=== PATIENT | female | born 1990 | race African-American/Black ===

== ENCOUNTER 2017-11-28 20:33 | Emergency (ER) | payer SELFPAY | END 2017-11-28 21:45 | disposition home or self-care (01) | LOC: ER 20:33 | DX: S02.5XXA Fracture of tooth (traumatic), initial encounter for closed fracture (principal); T50.905A Adverse effect of unspecified drugs, medicaments and biological substances, initial encounter; K04.7 Periapical abscess without sinus; K02.9 Dental caries, unspecified; X58.XXXA Exposure to other specified factors, initial encounter; Y93.89 Activity, other specified; Y92.89 Other specified places as the place of occurrence of the external cause; Y99.8 Other external cause status | CPT/HCPCS: 99283 ==

== ENCOUNTER 2018-09-14 18:25 | Emergency (ER) | payer MEDICAID, SELFPAY ==
[~2018-09-14] VITALS: Ht 149.9 cm; Wt 81.6 kg
[~2018-09-14 18:25] MED LIST: CLIN150C14 PO; NAPR-514 PO
[2018-09-14] MEDS ORDERED: hydrALAZINE 20 MG/ML VIAL. IVP ONE (19:30)
[2018-09-14 19:59] LABS: BASO # 0.1 x10^3/uL (0.0-0.2); BASO % 1 % (0-3); EOS # 0.5 x10^3/uL (0.0-0.7); EOS % 9 % (0-3); HEMATOCRIT 38.5 % (36.0-47.0); HEMOGLOBIN 12.8 g/dL (12.0-15.5); LYMPH # 2.3 x10^3/uL (1.0-4.8); LYMPH % 41 % (24-48); MEAN CORPUSCULAR HEMOGLOBIN 30 pg (25-35); MEAN CORPUSCULAR HGB CONC 33 g/dL (31-37); MEAN CORPUSCULAR VOLUME 91 fL (79-100); MONO # 0.6 x10^3/uL (0.0-1.1); MONO % 11 % (0-9); NEUT # 2.1 x10^3uL (1.8-7.7); NEUT % 39 % (31-73); PLATELET COUNT 334 x10^3/uL (140-400); RED BLOOD COUNT 4.23 x10^6/uL (3.50-5.40); RED CELL DISTRIBUTION WIDTH 15.1 % (11.5-14.5); WHITE BLOOD COUNT 5.5 x10^3/uL (4.0-11.0)
[2018-09-14 20:06] VITALS: BP 144/72
[2018-09-14 21:02] LABS: CREATININE 1.1 mg/dL (0.6-1.0); GFR 71.6; POTASSIUM 3.9 mmol/L (3.5-5.1)
[2018-09-14 21:08] LABS: ALBUMIN 3.5 g/dL (3.4-5.0); ALBUMIN/GLOBULIN RATIO 0.9 (1.0-1.7); TOTAL BILIRUBIN 0.2 mg/dL (0.2-1.0); TOTAL PROTEIN 7.5 g/dL (6.4-8.2)
--- NOTE | 2018-09-14 21:16 | PHYS DOC ---
Past Medical History Past Medical History: No Pertinent History Additional Past Medical Histor: chlamydia (KEATON LORA) Past Surgical History: Other Additional Past Surgical Histo: ABORTIONS X 2 (KEATON LORA) Alcohol Use: None Drug Use: None (KEATON LORA) Adult General Chief Complaint Chief Complaint: DIZZY/LIGHT HEADED HPI HPI Patient is a 28 year old F who comes in to ER feeling dizzy and short of breath about 2 hours prior to arrival. On arrival she states she is starting to feel a little better. Pt states she was at her friends house and took her blood pressure and found it was elevated so she took her friends blood pressure medicine. She is not sure what the medicine was but thinks it started with a B. Pt is actually hypertensive still on arrival. She denies chest pain and states her shortness of breath has resolved. (KEATON LORA) Review of Systems Review of Systems Constitutional: Denies fever or chills [] Respiratory: Denies cough. Reports shortness of breath. Cardiovascular: Denies chest pain. GI: Denies abdominal pain, nausea, vomiting, bloody stools or diarrhea [] : Denies dysuria or hematuria [] Musculoskeletal: Denies back pain or joint pain [] Integument: Denies rash or skin lesions [] Neurologic: Denies headache, focal weakness or sensory changes [] All other systems were reviewed and found to be within normal limits, except as documented in this note. (KEATON LORA) Current Medications Current Medications Current Medications Medications (Trade) Dose Ordered Sig/Alley Start Time Stop Time Status Last Admin Dose Admin Hydralazine HCl (Apresoline Inj) 5 mg 1X ONCE 09/14/18 19:30 09/14/18 19:31 DC (KATHERINE CARTER DO) Allergies Allergies Allergies Coded Allergies Type Severity Reaction Last Updated Verified No Known Drug Allergies 07/03/13 No (KATHERINE CARTER DO) Physical Exam Physical Exam Constitutional: Well developed, well nourished, no acute distress, non-toxic appearance. [] Neck: Normal range of motion, no tenderness, supple, no stridor. [] Cardiovascular:Heart rate regular rhythm, no murmur [] Lungs & Thorax: Bilateral breath sounds clear to auscultation [] Abdomen: Bowel sounds normal, soft, no tenderness, no masses, no pulsatile masses. [] Skin: Warm, dry, no erythema, no rash. [] Back: No tenderness, no CVA tenderness. [] Extremities: No tenderness, no cyanosis, no clubbing, ROM intact, no edema. [] Neurologic: Alert and oriented X 3, normal motor function, normal sensory function, no focal deficits noted. [] Psychologic: Affect normal, judgement normal, mood normal. [] (KEATON LORA) Current Patient Data Vital Signs Vital Signs Date Time Temp Pulse Resp B/P (MAP) Pulse Ox O2 Delivery O2 Flow Rate FiO2 09/14/18 20:06 82 99 09/14/18 19:37 134/76 09/14/18 18:42 97.9 16 Room Air 97.9 (CARTER,KATHERINE R DO) Lab Values Laboratory Tests Test 09/14/18 18:55 09/14/18 19:53 09/14/18 20:45 POC Urine HCG, Qualitative Hcg negative (Negative) White Blood Count 5.5 x10^3/uL (4.0-11.0) Red Blood Count 4.23 x10^6/uL (3.50-5.40) Hemoglobin 12.8 g/dL (12.0-15.5) Hematocrit 38.5 % (36.0-47.0) Mean Corpuscular Volume 91 fL (79-100) Mean Corpuscular Hemoglobin 30 pg (25-35) Mean Corpuscular Hemoglobin Concent 33 g/dL (31-37) Red Cell Distribution Width 15.1 % (11.5-14.5) H Platelet Count 334 x10^3/uL (140-400) Neutrophils (%) (Auto) 39 % (31-73) Lymphocytes (%) (Auto) 41 % (24-48) Monocytes (%) (Auto) 11 % (0-9) H Eosinophils (%) (Auto) 9 % (0-3) H Basophils (%) (Auto) 1 % (0-3) Neutrophils # (Auto) 2.1 x10^3uL (1.8-7.7) Lymphocytes # (Auto) 2.3 x10^3/uL (1.0-4.8) Monocytes # (Auto) 0.6 x10^3/uL (0.0-1.1) Eosinophils # (Auto) 0.5 x10^3/uL (0.0-0.7) Basophils # (Auto) 0.1 x10^3/uL (0.0-0.2) Maternal Serum HCG Beta Subunit < 1 mIU/mL (0-5) Sodium Level 141 mmol/L (136-145) Potassium Level 3.9 mmol/L (3.5-5.1) Chloride Level 105 mmol/L (98-107) Carbon Dioxide Level 29 mmol/L (21-32) Anion Gap 7 (6-14) Blood Urea Nitrogen 10 mg/dL (7-20) Creatinine 1.1 mg/dL (0.6-1.0) H Estimated GFR (Cockcroft-Gault) 71.6 BUN/Creatinine Ratio 9 (6-20) Glucose Level 83 mg/dL (70-99) Calcium Level 9.0 mg/dL (8.5-10.1) Total Bilirubin 0.2 mg/dL (0.2-1.0) Aspartate Amino Transferase (AST) 20 U/L (15-37) Alanine Aminotransferase (ALT) 35 U/L (14-59) Alkaline Phosphatase 55 U/L (46-116) Total Protein 7.5 g/dL (6.4-8.2) Albumin 3.5 g/dL (3.4-5.0) Albumin/Globulin Ratio 0.9 (1.0-1.7) L Laboratory Tests 09/14/18 19:53 Laboratory Tests 09/14/18 20:45 (KATHERINE CARTER DO) EKG EKG [] (KEATON LORA) Radiology/Procedures Radiology/Procedures [] (KEATON LORA) Course & Med Decision Making Course & Med Decision Making Pertinent Labs and Imaging studies reviewed. (See chart for details) Blood pressure came down without any medications. She is feeling back to baseline. Discussed in length that she should avoid taking other peoples medications and again discussed the dangers of doing this. Pt voices understanding. Pt asked to follow up with her PCP to have BP rechecked and discuss today's visit. She is ambulatory out of ER in no distress. (KEATON LORA) Dragon Disclaimer Dragon Disclaimer This electronic medical record was generated, in whole or in part, using a voice recognition dictation system. (KEATON LORA) Departure Departure Impression: Primary Impression: Dizzy Disposition: 01 HOME, SELF-CARE Condition: IMPROVED Referrals: NO PCP (PCP) DUTCH SHELLEY MD Patient Instructions: Dizziness, [id number] Additional Instructions: Your blood pressure was high on arrival but then before medicine could be given, it was down to a normal level. Stress can cause problems with high blood pressure. We recommend following up with a primary care doctor for further evaluation of your blood pressure. Please do not take other people's blood pressure medications. If you were not prescribed that medicine, you don't know what the medicine might do to you including dropping your pressure too low, making your heart rate too slow, etc. It can be very dangerous. Return to ER if symptoms worsen at anytime. Attending Signature Attending Signature I have reviewed the PA/SUPERVISOR BENZENE REFINING's note and plan of care. I was available for consultation as needed during the patient's visit in the emergency department. I agree with the clinical impression, plan, and disposition. (KATHERINE CARTER DO) KEATON LORA September 14, 2018 21:16 KATHERINE CARTER DO September 16, 2018 08:33
== END 2018-09-14 21:43 | disposition home or self-care (01) ==
LOC: ER 18:25
DX: R42 Dizziness and giddiness (principal); R06.02 Shortness of breath
CPT/HCPCS: 36415; 80053; 81025; 84702; 85025; 99284

== ENCOUNTER 2018-09-30 06:41 | Emergency (ER) | payer MEDICAID ==
[~2018-09-30] VITALS: Ht 149.9 cm; Wt 83.5 kg
[2018-09-30] MEDS ORDERED: MORPHINE SULFATE 10 MG/ML VIAL. IM ONE (07:15)
[2018-09-30] MEDS ORDERED: ONDANSETRON ODT 4 MG TAB.RAPDIS. PO ONE (07:15)
[2018-09-30] MEDS ORDERED: FAMOTIDINE 20 MG TABLET. PO ONE (07:15)
--- NOTE | 2018-09-30 07:29 | PHYS DOC ---
Past Medical History Past Medical History: No Pertinent History Additional Past Medical Histor: chlamydia Past Surgical History: Other Additional Past Surgical Histo: ABORTIONS X 2 Alcohol Use: None Drug Use: None Adult General Chief Complaint Chief Complaint: DENTAL PROBLEM HPI HPI Patient is a 28 year old -[place] female who presents with post extraction maxillary facial pain. Patient had 3 teeth extracted 3 days local dental clinic and was prescribed Tylenol 3. Patient's been taking Aleve at home in addition to Tylenol threes which she states has not controlled the pain. Patient states guarding the pain is localized over the socket of the upper incisor extracted on the right.[] Review of Systems Review of Systems ROS as per HPI All other systems were reviewed and found to be within normal limits, except as documented in this note. Current Medications Current Medications Current Medications Medications (Trade) Dose Ordered Sig/Alley Start Time Stop Time Status Last Admin Dose Admin Famotidine (Pepcid) 20 mg 1X ONCE 09/30/18 07:15 09/30/18 07:16 DC 09/30/18 07:47 20 MG Morphine Sulfate (Morphine Sulfate) 10 mg 1X ONCE 09/30/18 07:15 09/30/18 07:16 DC 09/30/18 07:46 10 MG Ondansetron HCl (Zofran Odt) 4 mg 1X ONCE 09/30/18 07:15 09/30/18 07:16 DC 09/30/18 07:47 4 MG Allergies Allergies Allergies Coded Allergies Type Severity Reaction Last Updated Verified No Known Drug Allergies 07/03/13 No Physical Exam Physical Exam Constitutional: Well developed, well nourished, moderate distress secondary to pain. [] HENT: Normocephalic, atraumatic, bilateral external ears normal, oropharynx moist, empty upper incisor socket, no clot present, no active bleeding[] Eyes: PERRLA, EOMI. [] Neck: Normal range of motion. [] Cardiovascular:Heart rate regular rhythm, no murmur [] Lungs & Thorax: Bilateral breath sounds clear to auscultation [] Psychologic: Affect normal, judgement normal, mood normal. [] Current Patient Data Vital Signs Vital Signs Date Time Temp Pulse Resp B/P (MAP) Pulse Ox O2 Delivery O2 Flow Rate FiO2 09/30/18 08:14 169/103 (125) 09/30/18 07:46 16 99 Room Air 09/30/18 06:44 98.2 94 98.2 EKG EKG [] Radiology/Procedures Radiology/Procedures [] Course & Med Decision Making Course & Med Decision Making Pertinent Labs and Imaging studies reviewed. (See chart for details) [] Dragon Disclaimer Dragon Disclaimer This electronic medical record was generated, in whole or in part, using a voice recognition dictation system. Departure Departure Impression: Primary Impression: Dry tooth socket Disposition: HOME, SELF-CARE Condition: GOOD Referrals: NO PCP (PCP) Patient Instructions: Dental Dry Socket, Dnef-eq-Iaor Scripts Hydrocodone/Apap 10-325 (NORCO 10-325 TABLET) 1 Each Tablet 1 TAB PO Q8HRS PRN for PAIN MDD 6, #10 TAB 0 Refills Prov: ROGERIO HARRIS DO 09/30/18 Penicillin V Potassium (PENICILLIN V POTASSIUM) 500 Mg Tablet 500 MG PO QID for 10 Days, #40 TAB 0 Refills Prov: ROGERIO HARRIS DO 09/30/18 ROGERIO HARRIS DO September 30, 2018 07:29
[2018-09-30] MEDS ORDERED: PENI500T PO (07:35)
[2018-09-30] MEDS ORDERED: HYDR-3135 PO (07:35)
[2018-09-30 08:14] VITALS: BP 169/103
== END 2018-09-30 08:17 | disposition home or self-care (01) ==
LOC: ER 06:41
DX: M27.3 Alveolitis of jaws (principal)
CPT/HCPCS: 96372; 99283; J2270; Q0162

== ENCOUNTER 2019-11-07 05:12 | Emergency (ER) | payer MEDICAID ==
[~2019-11-07] VITALS: Ht 149.9 cm; Wt 100.0 kg
[~2019-11-07 05:12] MED LIST changes: +HYDR-3135 PO; +PENI500T PO
--- NOTE | 2019-11-07 05:55 | PHYS DOC ---
Past Medical History Past Medical History: Hypertension Additional Past Medical Histor: chlamydia (BRISEYDA STALLINGS DO) Past Surgical History: Other Additional Past Surgical Histo: ABORTIONS X 2 (BRISEYDA STALLINGS DO) Smoking Status: Never Smoker Alcohol Use: None Drug Use: None (BRISEYDA STALLINGS DO) General Adult EDM: Chief Complaint: Palpitations HPI: HPI: Patient is a 29 year old female with a medical history of hypertension hyperlipidemia currently on control presents for the evaluation of palpitations. Patient states she woke up from bed around 230am and everything in her visual field was "red". She states at that time she felt "jittery". When getting up out of bed she felt her heart racing and felt short of breath. Visual change, Palpitations, and shortness of breath have resolved. Patient just starte bcp 2 weeks ago. No history of DVT or PE. (BRISEYDA STALLINGS DO) Review of Systems: Review of Systems: Constitutional: Denies fever or chills. [] Eyes: positive visual acuity. [] HENT: Denies nasal congestion or sore throat. [] Respiratory: positive shortness of breath. [] Cardiovascular: positive palpitations GI: Denies abdominal pain, nausea, vomiting, bloody stools or diarrhea. [] : Denies dysuria. [] Musculoskeletal: Denies back pain or joint pain. [] Integument: Denies rash. [] Neurologic: Denies headache, focal weakness or sensory changes. [] Endocrine: Denies polyuria or polydipsia. [] Lymphatic: Denies swollen glands. [] Psychiatric: Denies depression or anxiety. [] (BRISEYDA STALLINGS DO) Heart Score: Risk Factors: Risk Factors: DM, Current or recent (<one month) smoker, HTN, HLP, family history of CAD, obesity. Risk Scores: Score 0 - 3: 2.5% MACE over next 6 weeks - Discharge Home Score 4 - 6: 20.3% MACE over next 6 weeks - Admit for Clinical Observation Score 7 - 10: 72.7% MACE over next 6 weeks - Early Invasive Strategies (BRISEYDA STALLINGS DO) HEART Score for Chest Pain: HEART Score for Chest Pain Response (Comments) Value History Slighlty/Non-Suspicious 0 ECG Normal 0 Age < 45 0 Risk Factors No Risk Factors 0 Troponin < Normal Limit 0 Total 0 Allergies: Allergies: Allergies Coded Allergies Type Severity Reaction Last Updated Verified No Known Drug Allergies 07/03/13 No (BRISEYDA STALLINGS DO) Physical Exam: PE: Constitutional: Well developed, well nourished, no acute distress, non-toxic appearance. [] HENT: Normocephalic, atraumatic, bilateral external ears normal, oropharynx moist, no oral exudates, nose normal. [] Eyes: EOMI, conjunctiva normal, no discharge. [] Neck: Normal range of motion, no tenderness, supple, no stridor. [] Cardiovascular:Heart rate regular rhythm, Lungs & Thorax: Bilateral breath sounds clear to auscultation [] Abdomen: Bowel sounds normal, soft, no tenderness, no masses, no pulsatile masses. [] Skin: Warm, dry, no erythema, no rash. [] Back: No tenderness, no CVA tenderness. [] Extremities: No tenderness, ROM intact, Neurologic: Alert and oriented X 3, normal motor function, normal sensory function, no focal deficits noted. [] Psychologic: Affect normal, judgement normal, mood normal. [] (BRISEYDA STALLINGS DO) PE: CONSTITUTIONAL: Nontoxic, in no distress, alert and oriented, hemodynamically stable HEAD: normocephalic, atraumatic, NECK: No midline tenderness, no nuchal rigidity or meningismus, no JVD or tracheal deviation EENT: External ocular movements intact, no trismus or drooling, no voice changes, moist mucous membranes CARD: Regular rate, S1, S2, no murmurs ABDOMEN: Soft, nontender, no distention, no rebound tenderness or guarding RESPIRATORY lungs clear to auscultation bilaterally, no wheezing, rales or crackles, no stridor or tripoding, unlabored respiratory effort MUSCULOSKELETAL: Full range of motion's in all extremities, no deformities or tenderness to palpation VASCULAR: Equal upper and lower extremity pulses SKIN: Warm, no rash lesions or cyanosis NEURO: Sensory motor intact, PSYCH: Appropriate mood and affect (KIP ROSADO DO) Current Patient Data: Labs: Laboratory Tests Test 11/07/19 05:36 POC Urine HCG, Qualitative Hcg negative (Negative) Vital Signs: Vital Signs Date Time Temp Pulse Resp B/P (MAP) Pulse Ox O2 Delivery O2 Flow Rate FiO2 11/07/19 05:28 98.4 85 16 172/116 (134) 9 Room Air 98.4 (HAYLIEBRISEYDA DO) EKG: EKG: [] (BRISEYDA STALLINGS DO) Radiology/Procedures: Radiology/Procedures: [] (BRISEYDA STALLINGS DO) Radiology/Procedures: IMAGING REPORT Signed PATIENT: NIKA SHAW: [id number] : 1990 LOCATION: ER AGE: 29 SEX: F EXAM STATUS: REG ER ORD. PHYSICIAN: BRISEYDA STALLINGS DO REASON: shortness of breath palpitation PROCEDURE: CHEST AP ONLY AP chest. HISTORY: Short of breath AP view was taken of the chest. Lungs are clear. Heart is normal in size. There is no pleural effusion. IMPRESSION: 1. No acute chest disease. Electronically signed by: Jet Godinez MD (11/07/2019 6:31 AM) [id number] DICTATED and SIGNED BY: JET GODINEZ MD DATE: 11/07/19 0631 IMAGING REPORT Signed PATIENT: NIKA SHAW: [id number] : 1990 LOCATION: ER AGE: 29 SEX: F EXAM STATUS: REG ER ORD. PHYSICIAN: KIP ROSADO DO REASON: soa PROCEDURE: CT ANGIOGRAPHY CHEST CT ANGIOGRAPHY CHEST INDICATION: Dyspnea Comparison: Radiograph 11/07/2019. TECHNIQUE: Following the uneventful administration of intravenous contrast, 100 cc Omnipaque 350, axial CT sections were obtained through the lungs and upper abdomen. Multiplanar reconstructions and MIP images were obtained. PQRS compliance statement: One or more of the following individualized dose reduction techniques were utilized for this examination: 1. Automated exposure control 2. Adjustment of the mA and/or kV according to patient size 3. Use of iterative reconstruction technique FINDINGS: Pulmonary arteries: No evidence of pulmonary thromboembolic disease. Lungs and Airways: No pulmonary mass or consolidation. No abnormality of the central airways. Pleura: The pleural spaces are normal. Heart and Mediastinum: The visualized thyroid is normal in size and attenuation. No axillary or supraclavicular lymphadenopathy. No mediastinal, hilar or retrocrural lymphadenopathy. Cardiomegaly. No pericardial effusion. The great vessels of the thorax are normal. Abdomen: Limited images through the upper abdomen show no abnormality of the visualized organs. Bones and Soft Tissues: The visualized bones and chest wall soft tissues are within normal limits. IMPRESSION: 1. No evidence of pulmonary thromboembolic disease. 2. No pulmonary mass or consolidation. Electronically signed by: Lalit Rowan MD (11/07/2019 8:20 AM) [id number] DICTATED and SIGNED BY: LALIT ROWAN MD DATE: 11/07/19819 Impression: Patient reevaluated in ED. Reports an hour and a half of jitteriness, palpitations, feeling hot and weakness, while she was active. Is concerned that she may be diabetic and is also worried about her blood pressure. States shortness of breath has completely resolved while she has been in the emergency department. No known sick contacts or exposure to COVID. Labs show a creatinine of 1.2, normal glucose and negative troponin. Lung sounds clear. CT Angio of the chest shows no central pulmonary emboli or infiltrates. Pt asypmtomatic. Concern for uncontrolled blood pressure and palpitations. Will refer to cardiology outpatient and primary care physician for BP management. Strict ED return precautions were given for chest pain, neuro deficits, shortness of breath or syncope. All of her questions were answered and she was stable at time of discharge. (KIP ROSADO DO) Course & Med Decision Making: Course & Med Decision Making Pertinent Labs and Imaging studies reviewed. (See chart for details) [] EKG time 0551 heart rate 79 normal sinus rhythm no ST elevation T wave inversion lead III No STEMI (BRISEYDA STALLINGS DO) Dragon Disclaimer: Dragjaime Disclaimer: This electronic medical record was generated, in whole or in part, using a voice recognition dictation system. (BRISEYDA STALLINGS DO) Departure Departure Impression: Primary Impression: Palpitation Additional Impressions: Dyspnea Hypertension Disposition: HOME, SELF-CARE Condition: STABLE Referrals: NO PCP (PCP) AVNI JUAREZ MD [facility] Patient Instructions: Hypertension, Palpitations, Shortness of Breath Justicifation of Admission Dx: Justifications for Admission: Justification of Admission Dx: N/A (KIP ROSADO DO) BRISEYDA STALLINGS DO Nov 07, 2019 05:55 KIP ROSADO DO Nov 07, 2019 07:18
[2019-11-07 06:13] LABS: BASO % 1 % (0-3); EOS # 0.2 x10^3/uL (0.0-0.7); EOS % 4 % (0-3); HEMATOCRIT 36.9 % (36.0-47.0); HEMOGLOBIN 12.6 g/dL (12.0-15.5); LYMPH # 1.6 x10^3/uL (1.0-4.8); LYMPH % 29 % (24-48); MEAN CORPUSCULAR HEMOGLOBIN 32 pg (25-35); MEAN CORPUSCULAR HGB CONC 34 g/dL (31-37); MEAN CORPUSCULAR VOLUME 92 fL (79-100); MONO # 0.4 x10^3/uL (0.0-1.1); MONO % 8 % (0-9); NEUT # 3.2 x10^3/uL (1.8-7.7); NEUT % 58 % (31-73); PLATELET COUNT 329 x10^3/uL (140-400); RED CELL DISTRIBUTION WIDTH 13.7 % (11.5-14.5); WHITE BLOOD COUNT 5.5 x10^3/uL (4.0-11.0)
[2019-11-07 06:22] LABS: CALCIUM 9.1 mg/dL (8.5-10.1); CREATININE 1.2 mg/dL (0.6-1.0); GFR 64.3; POTASSIUM 4.2 mmol/L (3.5-5.1)
[2019-11-07 06:32] LABS: ALBUMIN 3.5 g/dL (3.4-5.0); ALBUMIN/GLOBULIN RATIO 0.9 (1.0-1.7); TOTAL BILIRUBIN 0.1 mg/dL (0.2-1.0); TOTAL PROTEIN 7.3 g/dL (6.4-8.2)
--- NOTE | 2019-11-07 06:34 | RAD ---
AP chest. HISTORY: Short of breath AP view was taken of the chest. Lungs are clear. Heart is normal in size. There is no pleural effusion. IMPRESSION: 1. No acute chest disease. Electronically signed by: Jet Godinez MD (11/07/2019 6:31 AM) [id number]
--- NOTE | 2019-11-07 06:43 | EKG ---
[facility] [address] [place] [address] Test Date: 2019-11-07 Test Time: 05:51:00 Pat Name: NIKA SHAW Department: Room: Gender: F Superintendent: : 1990 Requested By: BRISEYDA STALLINGS Order Number: [id number] Reading MD: Measurements Intervals [place] Rate: 79 P: 34 AL: 168 QRS: 26 QRSD: 72 T: 6 QT: 368 QTc: 423 Interpretive Statements SINUS RHYTHM QRS(T) CONTOUR ABNORMALITY CONSIDER ANTEROLATERAL MYOCARDIAL DAMAGE POSSIBLY ABNORMAL ECG RI6.01 No previous ECG available for comparison
[2019-11-07] MEDS ORDERED: IOHEXOL 350 MG/ML 100 ML VIAL. IV ONE (07:30)
[2019-11-07] MEDS ORDERED: CONTRAST GIVEN. MC PRN (07:45)
--- NOTE | 2019-11-07 08:23 | RAD ---
CT ANGIOGRAPHY CHEST INDICATION: Dyspnea Comparison: Radiograph 11/07/2019. TECHNIQUE: Following the uneventful administration of intravenous contrast, 100 cc Omnipaque 350, axial CT sections were obtained through the lungs and upper abdomen. Multiplanar reconstructions and MIP images were obtained. PQRS compliance statement: One or more of the following individualized dose reduction techniques were utilized for this examination: 1. Automated exposure control 2. Adjustment of the mA and/or kV according to patient size 3. Use of iterative reconstruction technique FINDINGS: Pulmonary arteries: No evidence of pulmonary thromboembolic disease. Lungs and Airways: No pulmonary mass or consolidation. No abnormality of the central airways. Pleura: The pleural spaces are normal. Heart and Mediastinum: The visualized thyroid is normal in size and attenuation. No axillary or supraclavicular lymphadenopathy. No mediastinal, hilar or retrocrural lymphadenopathy. Cardiomegaly. No pericardial effusion. The great vessels of the thorax are normal. Abdomen: Limited images through the upper abdomen show no abnormality of the visualized organs. Bones and Soft Tissues: The visualized bones and chest wall soft tissues are within normal limits. IMPRESSION: 1. No evidence of pulmonary thromboembolic disease. 2. No pulmonary mass or consolidation. Electronically signed by: Ye Salas MD (11/07/2019 8:20 AM) [id number]
[2019-11-07 09:01] VITALS: BP 179/105
== END 2019-11-07 09:02 | disposition home or self-care (01) ==
LOC: ER 05:12
DX: R00.2 Palpitations (principal); R06.00 Dyspnea, unspecified; I10 Essential (primary) hypertension; Z98.890 Other specified postprocedural states
CPT/HCPCS: 36415; 71045; 71275; 80053; 81025; 84484; 85025; 85379; 93005; 99285; Q9967

== ENCOUNTER 2021-01-09 22:49 | Emergency (ER) | payer SELFPAY ==
[~2021-01-09] VITALS: Ht 142.2 cm; Wt 90.9 kg
[~2021-01-09 22:49] MED LIST changes: -CLIN150C14 PO; +CLIN150C16 PO
[2021-01-09 23:51] VITALS: BP 189/124
== END 2021-01-10 | disposition left against medical advice (07) ==
LOC: ER 22:49
DX: R42 Dizziness and giddiness (principal); Z53.21 Procedure and treatment not carried out due to patient leaving prior to being seen by health care provider; V89.2XXA Person injured in unspecified motor-vehicle accident, traffic, initial encounter; Y93.89 Activity, other specified; Y92.89 Other specified places as the place of occurrence of the external cause; Y99.8 Other external cause status